=== PATIENT | male | born 1965 | race Caucasian/White ===

== ENCOUNTER 2016-05-08 19:09 | Emergency (ER) | payer SELFPAY ==
--- NOTE | 2016-05-09 19:08 | ER ---
ADMIT: 05/08/2016 RM/LOC: ER [facility] MR#: [id number] [address] [facility] [address] [place] [id number] [place] [facility] , ,, , [id number] , Emergency Room Report SEX: M AGE: 50 : 1965 DATE: 05/08/2016 HISTORY OF PRESENT ILLNESS: Very unkempt 50-year-old male, brought in by police for medical clearance. He is very agitated, very loud, uncooperative, very frustrated, hostile, paranoid, angry. REVIEW OF SYSTEMS: Anxiety and depression. He claims he had dental implants, microphones in his tonsils. He states he has a bubble in his eye and it is a camera. I was unable to get it through. PHYSICAL EXAMINATION: He is very noncooperative. Blood pressure 163/104 with a temp of 98.6, very unkempt, very dirty and smelly. CLINICAL IMPRESSION: Delusional disorder, paranoia, psychotic disorder, brief. Medical clearance, police clearance. He is handcuffed, taken away with clearance. MAYNOR Hall / Mary Chirinos MD / маринаl JOB #: [id number] CC: Lawrence Chirinos, Attending Physician Filiberto Villa MD, Family Physician
== END 2016-05-08 19:22 ==
LOC: ER 19:09
DX: F22 Delusional disorders (principal); F23 Brief psychotic disorder; F17.210 Nicotine dependence, cigarettes, uncomplicated